=== PATIENT | female | born 2000 | race Caucasian/White ===

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

== ENCOUNTER 2022-12-04 13:11 | Emergency (ER) | payer OTHER, SELFPAY ==
[2022-12-04 13:14] VITALS: BP 114/90; PULSE 76; RESP 20; TEMP 36.9; O2SAT 98
[2022-12-04 14:40] LABS: Basophils Percent Auto 0.4 % (0.2-1.2); Eosinophils Absolute Auto 0.1 K/mm3 (0-0.3); Hematocrit 41.3 % (37.0-47.0); Hemoglobin 13.4 g/dL (12.0-15.0); Immature Granulocyte Absolute 0.03 K/mm3 (0.00-0.031); Immature Granulocyte Percent A 0.3 % (0-0.5); Lymphocytes Absolute Auto 1.64 K/mm3 (0.9-3.2); Lymphocytes Percent Auto 18.2 % (18.3-44.2); Mean Corpuscular HGB Conc 32.4 g/dl (32-36); Mean Corpuscular Hemoglobin 30.5 pg (26-34); Mean Corpuscular Volume 94.1 fl (80-100); Mean Platelet Volume 9.5 fl (7.4-10.4); Monocytes Absolute Auto 0.6 K/mm3 (0.1-0.6); Monocytes Percent Auto 6.5 % (2.6-8.5); Neutrophils Absolute Auto 6.6 K/mm3 (1.3-6.7); Neutrophils Percent Auto 73.6 % (45.5-73.1); Platelet Count Result 291 k/mm3 (150-375); Red Blood Count 4.39 M/mm3 (4.2-5.4); Red Cell Distribution Width 12.1 % (11.5-14.5)
--- NOTE | 2022-12-04 14:49 | ED.GENADULT ---
HPI - General Adult General Chief complaint: Psychiatric Symptoms Stated complaint: SI Time Seen by Provider: 12/04/22 13:42 History of Present Illness HPI narrative: 22-year-old female with history of bipolar disorder presented to ED for evaluation of increased depression and suicidal thoughts. Patient reports she has had worsening depression over the course of the last month. Patient has been in close follow-up with her psychiatrist. Patient states that she does have intermittent suicidal thoughts and sometimes has a plan with intent to act on it. Patient is currently vague on if she wants to currently . Patient is tearful and has a flat affect. Patient states she does have history of psychiatric inpatient treatment and had a month-long residential stay in [place], patient felt this was helpful at the time. Related Data Allergies Allergy/AdvReac Type Severity Reaction Status Date / Time lamotrigine [From Lamictal] AdvReac Rash Verified 12/04/22 13:43 Review of Systems Review of Systems: All systems reviewed & are unremarkable except as noted in HPI and below PMFSH Past Medical History Medical History (Updated 12/05/22 @ 00:00 by Daniel Milan) Bipolar disorder Surgical History Surgical History No pertinent past surgical history Family History Family History Grandparent Diabetes mellitus Hypertension Acute myocardial infarction Father Hypertension Social History Social History Smoking status: Never smoker Alcohol use details: occasional but no drinking alcohol today Substance use: never Substance use type: former substance user Spiritual care concerns: No Exam Narrative: APPEARANCE: Well appearing, no pain, no distress, well-nourished. HEAD: normocephalic, atraumatic. EYES: PERRLA/EOMI, conjunctivae clear. NOSE: Normal no drainage NECK: Supple. No adenopathy, no masses. RESPIRATORY: Airway patent, respirations nonlabored. Clear to auscultation bilaterally, no rales, rhonchi, wheezing. CARDIOVASCULAR: Regular rate and rhythm without murmurs rubs or gallops. ABDOMINAL: Soft, nontender, nondistended, normal bowel sounds MUSCULOSKELETAL: Moves all extremities. Strength/ROM intact, No edema, No calf tenderness. NEURO: Alert. Cranial nerves II through XII intact. SKIN: Warm, dry. Normal Color PSYCHIATRIC: Tearful and flat affect Course Course Emergency Course: 22-year-old female presented ED for evaluation of worsening depression. Patient states that she does often have a plan with intent to act on this plan for self-harm. Patient denies doing anything to hurt herself. Patient was evaluated by the crisis counselor and patient did agree for voluntary inpatient psychiatric treatment. At time of signout transfer is pending Reevaluation(s) Reevaluation #1: Patient is medically cleared to be evaluated by the crisis counselor. Patient is medically cleared for transport and inpatient psychiatric treatment as needed. Vital Signs Vital signs: Vital Signs Temperature 98.5 F 12/04/22 13:14 Pulse Rate 76 12/04/22 13:14 Respiratory Rate 20 12/04/22 13:14 Blood Pressure 114/90 12/04/22 13:14 Pulse Oximetry 98 12/04/22 13:14 Oxygen Delivery Room Air 12/04/22 13:14 Temperature 98 F 12/04/22 20:38 Pulse Rate 61 12/04/22 20:38 Respiratory Rate 18 12/04/22 20:38 Blood Pressure 115/80 12/04/22 20:38 Pulse Oximetry 98 12/04/22 20:38 Oxygen Delivery Room Air 12/04/22 13:14 Medical Decision Making Vital Signs Vital Signs: Vital Signs Temperature 98.5 F 12/04/22 13:14 Pulse Rate 76 12/04/22 13:14 Respiratory Rate 20 12/04/22 13:14 Blood Pressure 114/90 12/04/22 13:14 Pulse Oximetry 98 12/04/22 13:14 Oxygen Delivery Room Air 12/04/22 13:14 Temperature 98 F
[2022-12-04 14:53] LABS: Alanine Aminotransferase 14 U/L (6-35); Albumin Level 4.6 g/dL (3.5-5.1); Alkaline Phosphatase 97 U/L (38-126); Anion Gap 8 mmol/L (8-16); Aspartate Amino Transferase 24 U/L (14-36); Bilirubin,Total 0.7 mg/dL (0.2-1.3); Blood Urea Nitrogen 7 mg/dL (7-17); Calcium 9.7 mg/dL (8.4-10.2); Carbon Dioxide 26 mmol/L (22-30); Chloride 104 mmol/L (98-107); Estimated CRCL calculation 80 ml/min; Estimated Glomerular Filt Rate > 60; Glucose 90 mg/dL (65-110); Potassium 4.2 mmol/L (3.4-5.0); Sodium 138 mmol/L (137-145)
[2022-12-04 14:54] LABS: Acetaminophen < 10 ug/mL (10-30); Ethanol < 10 mg/dL (<10); Salicylate < 1.0 mg/dL (2-20)
[2022-12-04 14:57] LABS: Amphetamine Screen Urine Negative (Negative); Barbiturate Screen Urine Negative (Negative); Benzodiazepines Screen Urine Negative (Negative); Cannabinoid Screen Urine Positive (Negative); Cocaine Screen Urine Negative (Negative); Methadone Screen Urine Negative (Negative); Opiate Screen Urine Negative (Negative); Phencyclidine Screen Urine Negative (Negative)
[2022-12-04 15:00] LABS: Appearance Urine Cloudy (Clear); Bacteria Urine 4+ /hpf; Bilirubin Urine Negative (Negative); Color Urine Yellow (Yellow); Glucose Urine UA Negative (Negative); Ketones Urine Trace mg/dL (Negative); Leukocyte Esterase Ur 3+ LEU/UL (Negative); Mucus Urine Present /lpf; Need Manual Microscopic Reviewed; Nitrate Urine Negative (Negative); Protein Urine 1+ mg/dL (Negative); RBC Urine 0-2 /hpf (0-2); Specific Grav Ur 1.023 (1.001-1.035); Squamous Epithelial Cell Urine Moderate /hpf (Few); Transitional Epi Cells Urine Present /hpf (None Seen); WBC Urine 51-100 /hpf
[2022-12-04 15:03] LABS: Add Urine Microscopic? YES
[2022-12-04 15:17] LABS: Influenza A QL RT-PCR Negative (Negative); Influenza B QL RT-PCR Negative (Negative); RSV RNA, RT-PCR Negative (Negative); SARS-CoV-2 RNA PCR Negative (Negative)
[2022-12-04 16:20] VITALS: BP 119/78; PULSE 76; RESP 18; O2SAT 100
--- NOTE | 2022-12-04 16:24 | PC.NURSE ---
Spoke with [facility], they are unable to evaluate this pt.
--- NOTE | 2022-12-04 16:43 | PC.NURSE ---
Pt gave verbal consent to calling her mother and providing an update. Mother, Leonila : [phone] Spoke with Leonila regarding pt status
[2022-12-04 17:50] VITALS: BP 103/65; PULSE 48; RESP 16; TEMP 37.2; O2SAT 100
--- NOTE | 2022-12-04 18:33 | PC.NURSE ---
Per Nita with crisis pt has been accepted to [facility] and that they will call with bed number and accepting physician
[2022-12-04 18:52] VITALS: BP 107/75; PULSE 53; RESP 16; TEMP 36.5; O2SAT 100
[2022-12-04] MEDS: LORazepam (*CRX) 1 MG TABLET PO (19:38)
[2022-12-04 19:47] LABS: Pregnancy On Board Control Positive; Urine Pregnancy Test Negative
[2022-12-04 20:38] VITALS: BP 115/80; PULSE 61; RESP 18; TEMP 36.6; O2SAT 98
--- NOTE | 2022-12-04 20:41 | PC.NURSE ---
Report called to Daniela SHEFFIELD at [facility]. Transportation set for 2100 today.
== END 2022-12-04 22:51 ==
PROVIDERS: Emergency Provider Emergency Medicine; PCP Pediatrics
DX: F32.A Depression, unspecified (principal); R45.851 Suicidal ideations; Z20.822 Contact with and (suspected) exposure to COVID-19
CPT/HCPCS: 36415; 80053; 80307; 81001; 81025; 84443; 85025; 87086; 87088; 87637; 99285; A9270

== ENCOUNTER 2024-01-25 19:40 | Emergency (ER) | payer OTHER, SELFPAY ==
[2024-01-25 19:41] VITALS: BP 117/82; PULSE 83; RESP 13; TEMP 36.5; O2SAT 100
--- NOTE | 2024-01-25 21:14 | PC.NURSE ---
pt to triage desk states, my symptoms have resolved and my visiion is back to normal. I do not think I need to be seen by a provider. I will follow up with psychiatrist . this rn explained the risks of leaving before seeing a provider. pt verbalized understanding. pt was seen leaving with visitor with a steady unassisted gait.
== END 2024-01-25 22:00 | disposition left against medical advice (07) ==
LOC: ANHED 21:36
DX: H53.8 Other visual disturbances (principal)
CPT/HCPCS: 99199

== ENCOUNTER 2024-01-26 16:23 | Emergency (ER) | payer OTHER, SELFPAY ==
--- NOTE | 2024-01-26 16:53 | ED.GENADULT ---
HPI - General Adult General Chief complaint: Unspecified Stated complaint: eps d/t antipsychotics Time Seen by Provider: 01/26/24 16:36 History of Present Illness HPI narrative: This is a 23-year-old female presenting for possible extrapyramidal symptoms. She had been on Invega injection but after wore off she was unable to get another 1. She was then placed on p.o. Invega. Since then she has developed eye movements that are uncontrollable. No other symptoms. She has appointment with her psychiatrist next week. She has tried Cogentin in the past but says it causes her blurry vision and she does not like it. She has never tried Benadryl. No other symptoms. Related Data Allergies Allergy/AdvReac Type Severity Reaction Status Date / Time lamotrigine [From Lamictal] AdvReac Rash Verified 01/26/24 16:26 [facility] Past Medical History Medical History Bipolar disorder Surgical History Surgical History No pertinent past surgical history Family History Family History Grandparent Diabetes mellitus Hypertension Acute myocardial infarction Father Hypertension Social History Social History Smoking status: Never smoker Alcohol use details: occasional but no drinking alcohol today Substance use: never Substance use type: former substance user Spiritual care concerns: No Exam Narrative: APPEARANCE: No apparent distress. Head: atraumatic. EYES: EOMI, NOSE: Atraumatic NECK: Trachea midline RESPIRATORY: No increased rate of breathing CARDIOVASCULAR: RRR, ABDOMINAL: Non-distended MUSCULOSKELETAl: No obvious deformities NEURO: Alert. Cranial nerves 2-12 grossly intact. Sensation light touch, motor function cerebellar function intact for 4 extremities. Gait exam was normal. SKIN:: Warm, dry. Normal color PSYCHIATRIC: Normal affect Medical Decision Making MDM Narrative Medical decision making narrative: -Course: 23-year-old female presenting with uncontrollable eye movements. During the interview she is has no symptoms. Discussed possible options for EPS treatment. She does not want Cogentin and she has had difficulty with blurry vision in the past. Discussed eyedrops for dry eyes and sunglasses for mydraiasis. If she does not want try Cogentin she can take Benadryl. Follow up with her psychiatrist Discharge Plan Discharge Clinical Impression: Drug side effects Patient Disposition: Home, Self-Care Condition: Stable Instructions: Antibiotic Form, Bipolar Disorder (DC) Additional Instructions: Please use Benadryl for your symptoms. Please follow-up with your psychiatrist. Return if you develop thoughts of harming herself or others or your symptoms become unbearable. Follow-up/Referrals: PHYSICIAN,[facility]IC [Primary Care Provider] -
[2024-01-26 17:37] VITALS: BP 113/84; PULSE 78; O2SAT 98
== END 2024-01-26 17:39 | disposition home or self-care (01) ==
PROVIDERS: Emergency Provider Emergency Medicine
DX: G25.89 Other specified extrapyramidal and movement disorders (principal); T43.595A Adverse effect of other antipsychotics and neuroleptics, initial encounter; F31.9 Bipolar disorder, unspecified
CPT/HCPCS: 99281